=== PATIENT | female | born 1965 | race Caucasian/White ===

== ENCOUNTER → 2016-10-23 | Outpatient (CLI) | payer OTHER ==
[~2016-10-23] MED LIST: FLEC100 PO; FLEC100T PO; FLUT1SPR14; FLUT50SP EACH NARE; LISI10TA3 PO
--- NOTE | 2016-10-23 14:26 | EKG ---
Date Performed: 10/23/2016 Time Performed: 10:56:06 PTAGE: 51 years EKG: Sinus rhythm POSSIBLE RIGHT VENTRICULAR CONDUCTION DELAY BORDERLINE ECG Compared to prior tracing no significant change PREVIOUS TRACING : 06/21/2001 11.43 DOCTOR: Grayson Power Interpretating Date/Time 10/23/2016 14:22:23
== END ==
LOC: HCAV 10:33
PROVIDERS: ATTEND Family Medicine
DX: I10 Essential (primary) hypertension (principal)
CPT/HCPCS: 93005

== ENCOUNTER 2017-12-18 03:19 | Observation (INO) ==
[2017-12-18] MEDS ORDERED: Sod Chloride 0.9% Inj 1,000 ML IV.SIG ONE ×2 (03:44→03:52)
--- NOTE | 2017-12-18 03:58 | ED ---
HPI General Chief Complaint: Dizziness Stated Complaint: DIZZINESS/EVAC Time Seen by Provider: 12/18/17 03:46 Source: patient Mode of arrival: EMS Limitations: no limitations History of Present Illness HPI Narrative: Patient presents via [facility]AC with the chief complaint of the acute onset of dizziness which she describes a spinning. She reports associated nausea and vomiting but denies any associated headache. Symptoms are exacerbated by opening her eyes. MD complaint: dizziness Onset (ago): minute(s) (Just prior to arrival) Timing: sudden onset Description: "room spinning" History of similar episodes: No History of trauma: No Severity: severe Relieving factors: nothing Associated symptoms: nausea and vomiting Related Data Home Medications Medication Instructions Recorded Confirmed flecainide 100 mg PO Q12H 12/18/17 12/18/17 Previous Rx's Medication Instructions Recorded meclizine 25 mg PO QID PRN #10 tab 12/18/17 ondansetron HCl [Zofran] 4 mg PO Q6-8H PRN #10 tab 12/18/17 Allergies Allergy/AdvReac Type Severity Reaction Status Date / Time verapamil Allergy Mild Rash Unverified 02/23/17 16:20 Review of Systems Except as stated in HPI: all other systems reviewed are negative [facility] Medical History Medical History Hypertension (Acute) Surgical History Surgical History No history of previous surgery (Acute) Social History Social History Substance History: No History of Abuse Smoking Status: Never smoker How Often Do You Have a Drink Containing Alcohol: 2 to 4 times a month Recent Travel in [facility] within the Last 8 Weeks: No Recent Out of Country Travel within the Last 8 Weeks: No Immunization History Tetanus Immunization: Unable to Assess Hx Influenza Vaccine This Season: Unable to Assess Exam Const General: cooperative and acute distress moderate HENMT Head: normal to inspection, normocephalic and atraumatic Eyes General: appearance normal, both eyes and all related structures Alignment and Position: alignment normal Neck Neck: full ROM and supple Chest Chest: normal inspection of the chest Resp Effort & Inspection: normal respiratory effort and able to speak in complete sentences Cardio Rate: regular rate Rhythm: regular rhythm GI Inspection: other (Active emesis) Back/Spine/Pelvis Cervical Spine: cervical ROM normal Thoracic/Lumbar Spine: thoraco-lumbar ROM normal Skin General: no rashes or lesions noted and turgor normal Neuro General: alert, awake, oriented x3, moves all extremities and CN's II-XI intact bilaterally Extrem General: normal to inspection and full ROM Psych Appearance: grossly normal Mental Status: mental status grossly normal Speech and Movement: speech and movement normal Mood: congruent mood Affect: normal affect Attitude: cooperative Thought Process: normal Thought Content: normal Judgment: judgment good Course Reevaluation(s) Reevaluation #1: The patient has been resting comfortably since returning from CT after being treated with IV Compazine and Benadryl Time: 05:33 Initial Documented Vital Signs Temperature 97.7 F 12/18/17 03:28 Pulse Rate 77 12/18/17 03:28 Respiratory Rate 18 12/18/17 03:28 Blood Pressure 199/109 H 12/18/17 03:28 Pulse Oximetry 95 12/18/17 03:28 Last Documented Vital Signs Temperature 97.7 F 12/18/17 03:28 Pulse Rate 65 12/18/17 05:16 Respiratory Rate 18 12/18/17 05:16 Blood Pressure 155/88 H 12/18/17 05:16 Pulse Oximetry 97 12/18/17 05:16 Medical Decision Making MDM Narrative Medical decision making narrative: This patient presents to us via EVAC with the acute onset of vertigo. Her symptoms are pretty severe. CT of her head is pending along with basic labs. She was treated by EVAC with Zofran. She will be given Compazine and Benadryl here. I will also give her a liter of fluid. Differential Diagnosis Differential Diagnosis: Differential diagnosis of dizziness includes but is not limited to vertigo, dehydration, acute blood loss, sepsis, ACS Lab Data Result diagrams: 12/18/17 04:15 12/18/17 04:15 Lab Results 12/18/17 12/18/17 Range/Units 04:15 04:15 CBC w Diff Auto diff final WBC 8.6 (4.0-11.0) th/mm3 RBC 4.63 (4.00-5.30) mil/mm3 Hgb 13.1 (11.6-15.3) gm/dL Hct 39.7 (35.0-46.0) % MCV 85.7 (80.0-100.0) fL MCH 28.2 (27.0-34.0) pg MCHC 32.9 (32.0-36.0) % RDW 13.2 (11.6-17.2) % Plt Count 162 (150-450) th/mm3 MPV 10.8 (7.0-11.0) fL Neut % (Auto) 65.0 (16.0-70.0) % Lymph % (Auto) 24.1 (9.0-44.0) % Terrell % (Auto) 6.0 (0.0-8.0) % Eos % (Auto) 3.7 (0.0-4.0) % Baso % (Auto) 1.2 (0.0-2.0) % Neut # (Auto) 5.6 (1.8-7.7) th/mm3 Lymph # (Auto) 2.1 (1.0-4.8) th/mm3 Terrell # (Auto) 0.5 (0.0-0.9) th/mm3 Eos # (Auto) 0.3 (0.0-0.4) th/mm3 Baso # (Auto) 0.1 (0.0-0.2) th/mm3 WBC Differential . Differential Comment . Sodium 138 (136-145) meq/L Potassium 3.3 L (3.5-5.1) meq/L Chloride 106 (98-107) meq/L Carbon Dioxide 26.8 (21.0-32.0) meq/L Anion Gap 5 (5-15) meq/L BUN 19 H (7-18) mg/dL Creatinine 0.77 (0.50-1.00) mg/dL Estimated GFR 79 L (>89) mL/min Random Glucose 156 H (74-106) mg/dL Calcium 8.5 (8.5-10.1) mg/dL Imaging Data Radiologist's impression: Head CT 12/18/17 03:52 CONCLUSION: No acute intracranial findings. Discharge Plan Discharge Disposition Patient Disposition: 01 Discharge Home Discharge Condition Condition: Stable Discharge Order Discharge Orders: Discharge Order (Routine); Ordered 12/18/17 Ordered By: Kailey Mahan Discharge Details Anticipated Discharge Date: 12/18/17 Diagnosis: Vertigo Physicians Team ED Provider: Kailey Mahan Primary Care Provider: Socorro Nelson Rxs /Orders / Referrals /Forms Prescriptions: New ondansetron HCl [Zofran] 4 mg tablet 4 mg PO Q6-8H PRN (Reason: nausea and vomiting) Qty: 10 RF: 0 meclizine 25 mg tablet 25 mg PO QID PRN (Reason: dizziness) Qty: 10 RF: 0 No Action flecainide 100 mg Tablet 100 mg PO Q12H RF: 0 Discharge Instructions Patient Printed Instructions: Vertigo (ED) Status ED Status: With Doctor
[2017-12-18 04:39] LABS: Baso # (Auto) 0.1 th/mm3 (0.0-0.2); Baso % (Auto) 1.2 % (0.0-2.0); Eos # (Auto) 0.3 th/mm3 (0.0-0.4); Eos % (Auto) 3.7 % (0.0-4.0); Hematocrit 39.7 % (35.0-46.0); Hemoglobin 13.1 gm/dL (11.6-15.3); Lymph # (Auto) 2.1 th/mm3 (1.0-4.8); Lymph % (Auto) 24.1 % (9.0-44.0); Mean Corpuscular HGB Conc 32.9 % (32.0-36.0); Mean Corpuscular Hemoglobin 28.2 pg (27.0-34.0); Mean Corpuscular Volume 85.7 fL (80.0-100.0); Mean Platelet Volume 10.8 fL (7.0-11.0); Mono # (Auto) 0.5 th/mm3 (0.0-0.9); Neut # (Auto) 5.6 th/mm3 (1.8-7.7); Platelet Count 162 th/mm3 (150-450); Red Blood Count 4.63 mil/mm3 (4.00-5.30); Red Cell Distribution Width 13.2 % (11.6-17.2); White Blood Count 8.6 th/mm3 (4.0-11.0)
[2017-12-18 04:44] LABS: Potassium 3.3 meq/L (3.5-5.1)
[2017-12-18 04:46] LABS: Calcium 8.5 mg/dL (8.5-10.1)
[2017-12-18 04:47] LABS: Carbon Dioxide 26.8 meq/L (21.0-32.0)
--- NOTE | 2017-12-18 04:48 | CT ---
EXAM DATE: 12/18/2017 4:41 AM EDT AGE/SEX: 52 years / Female INDICATIONS: Dizziness. CLINICAL DATA: This is the patient's initial encounter. Patient reports that signs and symptoms have been present for 1 day and indicates a pain score of 0/10. MEDICAL/SURGICAL HISTORY: Hypertension. None. RADIATION DOSE: 59.27 CTDI (mGy) COMPARISON: No prior exams available for comparison. TECHNIQUE: CT of the head without contrast. Using automated exposure control and adjustment of the mA and/or kV according to patient size, radiation dose was kept as low as reasonably achievable to ob tain optimal diagnostic quality images. DICOM format image data is available electronically for revi ew and comparison. FINDINGS: Cerebrum: The ventricles are normal for age. No evidence of midline shift, mass lesion, hemorrhage or acute infarction. No extraaxial fluid collections are seen. Posterior Fossa: The cerebellum and brainstem are intact. The 4th ventricle is midline. The cerebe llopontine angle is unremarkable. Extracranial: The visualized portion of the orbits is intact. Skull: The calvaria is intact. No evidence of skull fracture. CONCLUSION: No acute intracranial findings. Electronically signed by: Samir Marley MD 12/18/2017 4:47 AM EDT
[2017-12-18] MEDS ORDERED: Temazepam 15 MG Capsule PO PRN (06:41)
[2017-12-18] MEDS ORDERED: Bisacodyl 10 MG Supp RECTAL PRN (06:41)
[2017-12-18] MEDS ORDERED: Acetaminophen 325 MG Tablet PO PRN (06:41)
[2017-12-18] MEDS: Sod Chloride 0.9% Inj 1,000 ML IV.CONT SCH ×2 (07:31→23:40)
[2017-12-18] MEDS: Flecainide 100 MG Tablet PO SCH ×2 (08:08→17:49)
--- NOTE | 2017-12-18 10:18 | P.HP ---
History of Present Illness Primary Care Physician: Socorro Nelson MD History of Present Illness: 52-year-old female with past medical history of SVT and HTN. She presents early this morning with severe vertigo. Onset was overnight, associated with nausea and vomiting. Any movement of her head or opening of her eyes causes "the world to spin". She states she had a similar episode that was brief approximately 1 decade ago. She admits to a history of allergies. She denies any upper respiratory symptoms. She denies any trauma. CT scan of the head in the ER is negative. Review of Systems Constitutional: Denies anorexia, Denies body ache(s), Denies chills, Denies daytime sleepiness, Denies excessive sweating, Denies fatigue, Denies fever(s), Denies headache(s), Denies increased appetite, Denies lack of energy, Denies malaise, Denies night sweats, Denies weakness, Denies weight gain, Denies weight loss, Denies other Eyes: Denies blind spots, Denies blurry vision, Denies bulging eyes, Denies change in vision, Denies double vision, Denies discharge, Denies dry eyes, Denies floaters, Denies irritation, Denies itchy eyes, Denies loss of vision, Denies pain, Denies requires corrective lenses, Denies sensitivity to light, Denies other Ears, Nose, Mouth, and Throat: Denies abnormal hearing, Denies bleeding gums, Denies bad breath, Denies change in voice, Denies dental pain, Denies difficulty swallowing, Denies dizziness, Denies dry mouth, Denies ear discharge , Denies ear pain, Denies facial pain, Denies headache(s), Denies hearing loss, Denies hoarseness, Denies lip swelling, Denies nosebleed, Denies mouth lesions, Denies mouth pain, Denies nasal congestion, Denies nasal discharge, Denies nasal obstruction, Denies nasal trauma, Denies neck lump, Denies neck pain, Denies nose pain, Denies pain with swallowing, Denies poor balance, Denies post nasal drip, Denies ringing in the ears, Denies sinus pain, Denies sinus pressure , Denies sore throat, Denies throat swelling, Denies tongue swelling, Denies other Cardiovascular: Denies chest pain, Denies chest pain at rest, Denies chest pain with activity, Denies excessive sweating, Denies fainting, Denies fast heart rate, Denies foot swelling, Denies generalized swelling, Denies irregular heart rhythm, Denies leg pain with activity, Denies leg sores, Denies leg swelling, Denies lightheadedness, Denies radiating jaw, neck or arm pain, Denies rapid, pounding, or irregular heartbeat, Denies shortness of breath, Denies shortness of breath with activity, Denies shortness of breath when lying down, Denies shortness of breath causing sudden awakening, Denies slow heart rate, Denies other Respiratory: Denies change in phlegm color, Denies chest congestion, Denies cough, Denies coughing up blood, Denies excessive phlegm production, Denies pain on inspiration, Denies pain with cough, Denies shortness of breath, Denies shortness of breath with activity, Denies snoring, Denies stridor, Denies wheezing, Denies other Gastrointestinal: Denies abdominal pain, Denies belching, Denies black, tarry stools, Denies bloating, Denies bright, red blood in stools, Denies change in bowel habits, Denies constant urge to pass stool, Denies change in stools, Denies coffee ground vomit, Denies constipation, Denies cramping, Denies difficulty swallowing, Denies excessive passing of gas, Denies feeling full early, Denies heartburn, Denies incontinent of stools, Denies loose stools, Denies nausea, Denies pain with swallowing, Denies vomiting, Denies vomiting blood, Denies other Musculoskeletal: Denies abnormal walking, Denies back pain, Denies body aches, Denies decreased muscle mass, Denies deformity, Denies joint pain, Denies joint swelling, Denies limited joint movement, Denies loss of height, Denies muscle cramps, Denies muscle weakness, Denies neck pain, Denies numbness, Denies radiating pain into limb, Denies stiffness, Denies tingling, Denies other Neurologic: Reports dizziness, Denies abnormal hearing, Denies abnormal movements, Denies abnormal speech, Denies confusion, Denies fainting, Denies loss of vision, Denies memory loss, Denies numbness, Denies other visual disturbances, Denies radiating pain, Denies restless legs, Denies convulsions, Denies seizure-like activity, Denies sensory deficit, Denies tingling, Denies tingling/numbness/burning sensations Psychiatric: Denies abnormal sleep pattern, Denies anxiety, Denies behavioral changes, Denies change in appetite, Denies change in sex drive, Denies confusion , Denies depression, Denies difficulty concentrating, Denies hearing things others do not hear, Denies hopelessness, Denies irritability, Denies lack of enjoyment, Denies memory loss, Denies mood swings, Denies panic attacks, Denies paranoia, Denies seeing things others do not see, Denies sensing things others do not sense, Denies tactile hallucinations, Denies thoughts of hurting/killing others, Denies thoughts of hurting/killing yourself, Denies other Endocrine: Denies cold intolerance, Denies excessive sweating, Denies flushing, Denies heat intolerance, Denies increased hunger, Denies increased thirst, Denies increased urination, Denies rapid, pounding, or irregular heartbeat, Denies other Hematologic/Lymphatic: Denies easy bleeding, Denies easy bruising, Denies enlarged lymph nodes, Denies other Allergic/Immunologic: Denies GI upset with certain foods, Denies hives, Denies itchy eyes, Denies lip swelling, Denies seasonal runny nose, Denies throat swelling, Denies tongue swelling, Denies wheezing, Denies other PMFSH - History History Provided By: Patient - Medical History Medical History: Medical History (Last Updated 12/18/17 @ 10:13 by Carl Ortega MD) Hypertension Supraventricular tachycardia - Surgical History Surgical History: Surgical History (Last Updated 12/18/17 @ 10:14 by Carl Ortega MD) H/O cardiac radiofrequency ablation No history of previous surgery - Family History Family History: Family History (Last Updated 12/18/17 @ 10:14 by Carl Ortega MD) Other Positional vertigo - Tobacco History Smoking Status: Never smoker - Alcohol History How Often Do You Have a Drink Containing Alcohol: 2 to 4 times a month - Substance Use History Substance History: No History of Abuse - Travel History Recent Travel in the [facility] Within the Last 8 Weeks: No Recent Travel Out of the Country Within the Last 8 Weeks: No - Immunization History Tetanus Immunization: Unable to Assess Hx Influenza Vaccine This Season: Unable to Assess Medications and Allergies Active Medications: Active Medications Acetaminophen (Tylenol) 650 mg PO Q4H PRN PRN Reason: Temp > 100.4 Al Hydroxide/Mg Hydroxide (Milk Of Magnesia Liq) 30 ml PO Q12H PRN PRN Reason: Mild Constipation Bisacodyl (Dulcolax Supp) 10 mg RECTAL DAILY PRN PRN Reason: SEVERE CONSITIPATION Diphenhydramine HCl (Benadryl) 50 mg PO Q6H PRN PRN Reason: VERTIGO Flecainide Acetate (Tambocor) 100 mg PO Q12H [facility] Last Admin: 12/18/17 08:08 Dose: 100 mg Sodium Chloride (Ns Inj) 1,000 mls @ 100 mls/hr IV.CONT .Q10H [facility] Last Admin: 12/18/17 07:31 Dose: 100 mls/hr Ketorolac Tromethamine (Toradol Inj) 30 mg IV.PUSH Q6H [facility] Stop: 12/19/17 09:00 Lactulose (Lactulose Liq) 30 ml PO DAILY PRN PRN Reason: SEVERE CONSITIPATION Meclizine HCl (Antivert) 25 mg PO Q8H [facility] Last Admin: 12/18/17 08:08 Dose: 25 mg Ondansetron HCl (Zofran Odt) 4 mg PO Q6H PRN PRN Reason: NAUSEA OR VOMITING Prochlorperazine Edisylate (Compazine Inj) 10 mg IV.PUSH Q6H PRN PRN Reason: NAUSEA/VOMITING Last Admin: 12/18/17 07:31 Dose: 10 mg Senna/Docusate Sodium (Sandy-Colace) 1 tab PO BID [facility] Sennosides (Senokot) 17.2 mg PO Q12H PRN PRN Reason: Moderate Constipation Sodium Chloride (Ns Flush) 2 ml IV.FLUSH PRN PRN PRN Reason: FLUSH AFTER USING IV ACCESS Last Admin: 12/18/17 04:07 Dose: 2 ml Temazepam (Restoril) 15 mg PO HS PRN PRN Reason: INSOMNIA Allergies Allergy/AdvReac Type Severity Reaction Status Date / Time verapamil Allergy Mild Rash Unverified 12/18/17 07:21 Home Medications Medication Instructions Recorded Confirmed Type flecainide 100 mg PO Q12H 12/18/17 12/18/17 History lisinopril 20 mg PO DAILY 12/18/17 12/18/17 History Exam Vital signs: Vital Signs 12/18/17 03:28 12/18/17 05:16 12/18/17 07:18 Temperature 97.7 F Pulse Rate 77 65 74 Respiratory Rate 18 18 16 Blood Pressure 199/109 H 155/88 H 143/98 H Pulse Oximetry 95 97 12/18/17 09:08 Temperature 96.5 F L Pulse Rate 77 Respiratory Rate 20 Blood Pressure 158/84 H Pulse Oximetry 94 L Intake & Output 12/17/17 12/18/17 12/18/17 18:59 06:59 18:59 Intake Total 1999 Balance 1999 Weight 72.5 kg 75.7 kg Intake: IV 1999 NS Inj 1,000 ML @ Wide Open IV. 1999 SIG BOLUS ONE Rx#:[id number] Other: Weight On Admission 75.7 kg Narrative: GENERAL: Alert and oriented 3, distressed from dizziness, lying still on her left side eyes closed SKIN: Warm and dry. HEAD: Atraumatic. Normocephalic. EYES: Pupils equal and round. No scleral icterus. No injection or drainage. ENT: No nasal bleeding or discharge. Mucous membranes pink and moist. NECK: Trachea midline. No JVD. CARDIOVASCULAR: Regular rate and rhythm. RESPIRATORY: No accessory muscle use. Clear to auscultation. Breath sounds equal bilaterally. GASTROINTESTINAL: Abdomen soft, non-tender, nondistended. Hepatic and splenic margins not palpable. MUSCULOSKELETAL: Extremities without clubbing, cyanosis, or edema. No obvious deformities. NEUROLOGICAL: Awake and alert. No obvious cranial nerve deficits. Motor grossly within normal limits. Five out of 5 muscle strength in the arms and legs. Normal speech. PSYCHIATRIC: Appropriate mood and affect; insight and judgment normal. Results - Labs CBC & Chem 7: 12/18/17 04:15 12/18/17 04:15 Labs: Laboratory Results - last 24 hr 12/18/17 12/18/17 04:15 04:15 CBC w Diff Auto diff final WBC 8.6 RBC 4.63 Hgb 13.1 Hct 39.7 MCV 85.7 MCH 28.2 MCHC 32.9 RDW 13.2 Plt Count 162 MPV 10.8 Neut % (Auto) 65.0 Lymph % (Auto) 24.1 Reagan % (Auto) 6.0 Eos % (Auto) 3.7 Baso % (Auto) 1.2 Neut # (Auto) 5.6 Lymph # (Auto) 2.1 Reagan # (Auto) 0.5 Eos # (Auto) 0.3 Baso # (Auto) 0.1 WBC Differential . Differential Comment . Sodium 138 Potassium 3.3 L Chloride 106 Carbon Dioxide 26.8 Anion Gap 5 BUN 19 H Creatinine 0.77 Estimated GFR 79 L Random Glucose 156 H Calcium 8.5 - Imaging Impressions Head CT 12/18/17 03:52 CONCLUSION: No acute intracranial findings. Caprini VTE Risk Assessment Caprini VTE Risk Assessment: Moderate/High Risk (score >= 2) Caprini Risk Assessment Model: Point Value = 1 Point Value = 2 Point Value = 3 Point Value = 5 Age 41-60 Minor surgery BMI > 25 kg/m2 Swollen legs Varicose veins or History of unexplained or recurrent spontaneous Oral contraceptives or hormone replacement Sepsis (< 1 month) Serious lung disease, including pneumonia (< 1 month) Abnormal pulmonary function Acute myocardial infarction Congestive heart failure (< 1 month) History of inflammatory bowel disease Medical patient at bed rest Age 61-74 Arthroscopic surgery Major open surgery (> 45 min) Laparoscopic surgery (> 45 min) Malignancy Confined to bed (> 72 hours) Immobilizing plaster cast Central venous access Age >= 75 History of VTE Family history of VTE Factor V Leiden Prothrombin [id number] Lupus anticoagulant Anticardiolipin antibodies Elevated serum homocysteine Heparin-induced thrombocytopenia Other congenital or acquired thrombophilia Stroke (< 1 month) Elective arthroplasty Hip, pelvis, or leg fracture Acute spinal cord injury (< 1 month) Prophylaxis Regimen: Total Risk Factor Score Risk Level Prophylaxis Regimen 0-1 Low Early ambulation 2 Moderate Order ONE of the following: *Sequential Compression Device (SCD) *Heparin 5000 units SQ BID 3-4 Higher Order ONE of the following medications: *Heparin 5000 units SQ TID *Enoxaparin/Lovenox 40 mg SQ daily (WT < 150 kg, CrCl > 30 mL/min) *Enoxaparin/Lovenox 30 mg SQ daily (WT < 150 kg, CrCl > 10-29 mL/min) *Enoxaparin/Lovenox 30 mg SQ BID (WT < 150 kg, CrCl > 30 mL/min) AND/OR *Sequential Compression Device (SCD) 5 or more Highest Order ONE of the following medications: *Heparin 5000 units SQ TID (Preferred with Epidurals) *Enoxaparin/Lovenox 40 mg SQ daily (WT < 150 kg, CrCl > 30 mL/min) *Enoxaparin/Lovenox 30 mg SQ daily (WT < 150 kg, CrCl > 10-29 mL/min) *Enoxaparin/Lovenox 30 mg SQ BID (WT < 150 kg, CrCl > 30 mL/min) AND *Sequential Compression Device (SCD) Assessment and Plan - Plan Positional vertigo Most likely BPPV given the nature of onset and history of allergies CT brain negative, will get MRI of brain to complete stroke rule out Continue meclizine, added Benadryl, added Toradol h/o hypertension Continue home dose of lisinopril h/o supraventricular tachycardia Heart is normal sinus rhythm at this time s/p cardiac ablation 2 DVT prophylaxis SCD hose until [employer] bleed ruled out
[2017-12-18] MEDS: Ketorolac Inj 30 MG/ML (IVP) Vial IV.PUSH SCH ×3 (10:50→20:03)
[2017-12-18] MEDS: Senna/Docusate Sodium 8.6/50 MG Tablet PO SCH ×2 (10:51→22:33)
[2017-12-18] MEDS: Lisinopril 20 MG Tablet PO SCH (10:51)
--- NOTE | 2017-12-18 15:11 | MR ---
EXAM DATE: 12/18/2017 1:16 PM EDT AGE/SEX: 52 years / Female INDICATIONS: Dizziness. CLINICAL DATA: This is the patient's initial encounter. Patient reports that signs and symptoms have been present for 1 day and indicates a pain score of 0/10. MEDICAL/SURGICAL HISTORY: Hypertension. None. COMPARISON: [facility], CT HEAD W/O CONTRAST, 12/18/2017. . TECHNIQUE: Multiplanar, multisequence examination of the brain was performed without contrast. FINDINGS: Cerebrum: The ventricles are normal for age. No evidence of midline shift, mass lesion, hemorrhage or acute infarction. No extraaxial fluid collections are seen. The pituitary gland and suprasellar cistern are normal in configuration. White Matter: No significant signal abnormalities are seen in the white matter. Posterior Fossa: The cerebellum and brainstem are intact. The 4th ventricle is midline. The cerebel lopontine angle is unremarkable. The cerebellar tonsils are normal in position. Diffusion Imaging: No focal areas of restricted diffusion are seen. No evidence of acute infarction . Extracranial: The visualized portions of the orbits and paranasal sinuses are unremarkable. CONCLUSION: 1. Negative noncontrast MRI of the brain.- Electronically signed by: Mauro Mittal MD 12/18/2017 3:10 PM EDT
[2017-12-19] MEDS: Ketorolac Inj 30 MG/ML (IVP) Vial IV.PUSH SCH ×2 (02:54→09:21)
[2017-12-19] MEDS: Flecainide 100 MG Tablet PO SCH ×2 (06:21→17:45)
[2017-12-19 06:30] LABS: Baso % (Auto) 0.4 % (0.0-2.0); Eos # (Auto) 0.1 th/mm3 (0.0-0.4); Eos % (Auto) 0.8 % (0.0-4.0); Hematocrit 37.9 % (35.0-46.0); Hemoglobin 12.8 gm/dL (11.6-15.3); Lymph # (Auto) 1.8 th/mm3 (1.0-4.8); Lymph % (Auto) 18.9 % (9.0-44.0); Mean Corpuscular HGB Conc 33.7 % (32.0-36.0); Mean Platelet Volume 9.6 fL (7.0-11.0); Mono # (Auto) 0.7 th/mm3 (0.0-0.9); Mono % (Auto) 7.1 % (0.0-8.0); Neut # (Auto) 6.9 th/mm3 (1.8-7.7); Neut % (Auto) 72.8 % (16.0-70.0); Platelet Count 193 th/mm3 (150-450); Red Cell Distribution Width 13.3 % (11.6-17.2); White Blood Count 9.5 th/mm3 (4.0-11.0)
[2017-12-19 06:36] LABS: Chloride 109 meq/L (98-107); Potassium 3.6 meq/L (3.5-5.1); Sodium 142 meq/L (136-145)
[2017-12-19 06:44] LABS: Anion Gap 5 meq/L (5-15); Blood Urea Nitrogen 9 mg/dL (7-18); Calcium 7.9 mg/dL (8.5-10.1); Carbon Dioxide 27.6 meq/L (21.0-32.0); Glucose,Random 86 mg/dL (74-106)
[2017-12-19 06:47] LABS: Alanine Aminotransferase 20 U/L (10-53); Aspartate Aminotransferase 13 U/L (15-37); Glomerular Filtration Rate Greater Than 89 mL/min (>89)
[2017-12-19 06:49] LABS: Total Protein 6.4 g/dL (6.4-8.2)
[2017-12-19 06:50] LABS: Alkaline Phosphatase 43 U/L (45-117)
[2017-12-19] MEDS: Lisinopril 20 MG Tablet PO SCH (09:21)
[2017-12-19] MEDS: Sod Chloride 0.9% Inj 1,000 ML IV.CONT SCH (09:25)
[2017-12-19] MEDS: Senna/Docusate Sodium 8.6/50 MG Tablet PO SCH (09:28)
--- NOTE | 2017-12-19 11:58 | P.PN ---
Subjective Interval history: 52-year-old female with BPPV has had a measurable improvement compared to yesterday. She is approximately 50% better by her report. Still has some dizziness, still unsteady on her feet and requiring her to hold onto her when she ambulates. She denies any nausea this morning. Physical Exam Vital signs: Vital Signs 12/18/17 15:03 12/18/17 20:00 12/19/17 00:00 Temperature 96.5 F L 97.4 F L 96.8 F L Pulse Rate 78 79 80 Respiratory Rate 20 18 20 Blood Pressure 154/82 H 146/84 H 133/78 Pulse Oximetry 97 94 L 96 12/19/17 07:22 12/19/17 11:03 Temperature 98.6 F 98.2 F Pulse Rate 80 76 Respiratory Rate 20 20 Blood Pressure 123/75 122/74 Pulse Oximetry 96 96 Intake & Output 12/18/17 12/19/17 12/19/17 18:59 06:59 18:59 Intake Total 1000 / 1000 120 / 120 1000 / 1000 Balance 1000 / 1000 120 / 120 1000 / 1000 Weight 75.7 kg 76 kg Intake: IV 1000 / 1000 1000 / 1000 NS Inj 1,000 ML @ 100 mls/hr IV 1000 / 1000 1000 / 1000 .CONT .Q10H LV Rx#:[id number] Oral 120 / 120 Other: # Voids 1 1 Weight On Admission 75.7 kg Narrative: GENERAL: AAOx3, mild dizziness SKIN: Warm and dry. HEAD: Normocephalic. EYES: No scleral icterus. No injection or drainage. NECK: Supple, trachea midline. No JVD or lymphadenopathy. CARDIOVASCULAR: Regular rate and rhythm without murmurs, gallops, or rubs. RESPIRATORY: Breath sounds equal bilaterally. No accessory muscle use. GASTROINTESTINAL: Abdomen soft, non-tender, nondistended. MUSCULOSKELETAL: No cyanosis, or edema. BACK: Nontender without obvious deformity. No CVA tenderness. Results - Labs CBC & Chem 7: 12/19/17 05:50 12/19/17 05:50 Laboratory Results - last 24 hr 12/19/17 12/19/17 05:50 05:50 CBC w Diff Auto diff final WBC 9.5 RBC 4.40 Hgb 12.8 Hct 37.9 MCV 86.0 MCH 29.0 MCHC 33.7 RDW 13.3 Plt Count 193 MPV 9.6 Neut % (Auto) 72.8 H Lymph % (Auto) 18.9 Lee % (Auto) 7.1 Eos % (Auto) 0.8 Baso % (Auto) 0.4 Neut # (Auto) 6.9 Lymph # (Auto) 1.8 Lee # (Auto) 0.7 Eos # (Auto) 0.1 Baso # (Auto) 0.0 WBC Differential . Differential Comment . Sodium 142 Potassium 3.6 Chloride 109 H Carbon Dioxide 27.6 Anion Gap 5 BUN 9 Creatinine 0.55 Estimated GFR Greater than 89 Random Glucose 86 Calcium 7.9 L Total Bilirubin 0.4 AST 13 L ALT 20 Alkaline Phosphatase 43 L Total Protein 6.4 Albumin 3.0 L - Imaging Impressions Head MRI 12/18/17 00:00 CONCLUSION: 1. Negative noncontrast MRI of the brain.- Assessment and Plan - Plan Positional vertigo Most likely BPPV given the nature of onset and history of allergies CT and MRI of brain both negative Continue meclizine and Toradol Patient may be discharged when able to walk unassisted and tolerate solid food h/o hypertension Continue home dose of lisinopril h/o supraventricular tachycardia Heart is normal sinus rhythm at this time s/p cardiac ablation 2 DVT prophylaxis SCD hose until [employer] bleed ruled out
[2017-12-19 12:08] LABS: Hemoglobin A1c 5.2 % (4.3-6.0)
[2017-12-19 20:34] VITALS: BP 160/98; PULSE 80; RESP 16; TEMP 97.8; O2SAT 96
== END 2017-12-19 20:40 | disposition home or self-care (01) ==
LOC: PHEDA 03:19 → PHED 03:19 → PH3 03:19
PROVIDERS: ADMIT Family Medicine; ATTEND Family Medicine